=== PATIENT | female | born 1970 | race Asian ===

== ENCOUNTER 2021-01-11 11:57 | Emergency (ER) | payer OTHER, SELFPAY ==
[2021-01-11 12:33] VITALS: BP 108/73; PULSE 66; RESP 18; TEMP 36.4; O2SAT 98; BMI 23.9
--- NOTE | 2021-01-11 12:44 | CT_ITS ---
WS: [id number] CT HEAD NONCONTRAST HISTORY: fall, headache, fatigue TECHNIQUE: Contiguous axial imaging performed through the brain in 2.5 mm imaging. Bone and soft tiss ue windows. Sagittal and coronal reformats reviewed. All CT scans at [facility] use at le ast one of these dose optimization techniques: automated exposure control; mA and/or kV adjustment pe r patient size (includes targeted exams where dose is matched to clinical indication); or iterative r econstruction. DLP: 860.43 mGy.cm COMPARISON: None available. No acute intracranial hemorrhage, midline shift or mass effect. No significant white matter disease. No atrophy or prior infarcts or herniation. Ventricles: Normal size with no hydrocephalus. Paranasal sinuses: Almost complete opacification of the LEFT maxillary sinus. Probably from mucoperio steal thickening and sinus disease. Mastoid air cells: Well pneumatized. Calvarium and scalp: Skull is intact with no soft tissue edema or swelling. CT/CT head wo con* [id number] IMPRESSION: 1. No acute intracranial hemorrhage or edema. 2. No skull fracture. 3. LEFT maxillary sinusitis.
--- NOTE | 2021-01-11 12:45 | ED_ITS ---
HPI - Fall General: Chief Complaint: Fall Stated Complaint: FELL LAST NIGHT/HEAD INJURIES, CONFUSION Time Seen by Provider: 01/11/21 12:37 History of Present Illness: HPI Narrative: Patient states she fell last night striking her head and right shoulder when she had a rail coming off a sidewalk. States she had immediate headache. She denies any nausea or vomiting since then. She did chip her tooth and got abrasion to her upper lip. She did not remember where she hit her head at. Patient says she is felt just really fatigued and and sleepy today. MD complaint: fall Onset (ago): hour(s) Fall from: standing Fall witnessed: yes, by bystander Place fall occurred: street Loss of consciousness: None Prolonged down time: no Symptoms prior to fall: none Context: tripped/slipped Location of injury: head and other Location of injury - extremities: Right: shoulder Severity: mild Severity scale (1-10): 2 Quality: aching Associated symptoms-after fall: Reports no associated symptoms and headache(s); Denies abdominal pain, chest pain or neck pain Review of Systems Const: Reports: fatigue; Denies: fever(s), chills or body aches Eyes: Denies: change in vision or blurry vision ENMT: Denies: throat pain or nasal congestion Card: Denies: chest pain or dyspnea on exertion Resp: Denies: dyspnea, productive cough or non-productive cough GI: Denies: abdominal pain, nausea or vomiting Musc: Reports: joint pain; Denies: neck pain or extremity pain Skin/Breast: Denies: rash Neuro: Reports: headache(s) Psych: Denies: anxiety or depression Dale/Lymph: Denies: easy bruising Physical Exam Const: COMMON NORMALS: no acute distress, average body habitus and patient oriented x3 HENMT: COMMON NORMALS: normocephalic HEAD & SCALP: normal to inspection and normocephalic FACE & SINUS: normal facial exam TEETH & GINGIVA IMAGES: 1. Eye: COMMON NORMALS: Equal, round and reactive pupils present and conjunctivae normal GENERAL EYE: appearance normal, both eyes and all related structures CONJUNCTIVA: Yes conjunctivae normal PUPIL: Yes Equal, round and reactive pupils present Neck/C-Spine: COMMON NORMALS: no JVD Chest: COMMONS NORMALS: normal inspection of the chest Resp: COMMON NORMALS: normal respiratory effort and clear to auscultation bilaterally AUSCULTATION: clear to auscultation bilaterally Cardio: COMMON NORMALS: no JVD, regular rate and regular rhythm RATE: regular rate RHYTHM: regular rhythm GI: COMMON NORMALS: Normal to inspection, nondistended, normoactive bowel sounds present Extremity: COMMON NORMALS: full ROM RIGHT UPPER EXTREMITY: Yes shoulder joint (Tender to anterior aspect, has full range of motion, no swelling bruising) Neuro: COMMON NORMALS: patient oriented x3, CN's II-XII intact bilaterally, moves all extremities, no focal motor deficits and no sensory deficits noted Skin: OTHER: Abrasion above upper lip. Course Vital Signs: Vital signs: Vital Signs Temperature 97.9 F 01/11/21 13:30 Pulse Rate 69 01/11/21 13:30 Respiratory Rate 16 01/11/21 13:30 Blood Pressure 104/67 01/11/21 13:30 Pulse Oximetry 98 01/11/21 13:30 MDM - Fall MDM Narrative: Medical decision making narrative: CT negative for any head injury. Does show maxillary sinus which is located left maxillary sinus almost complete patient did state that she has been having some sinus problems over the last few weeks. Patient given head injury instructions as to complete antibiotic course for maxillary sinus and blood primary care provider. Discharge Plan Discharge Patient Disposition: Home Clinical Impression: Sinusitis, maxillary, chronic Fall Qualifiers: Encounter type: initial encounter Qualified Code(s): W19.XXXA - Unspecified fall, initial encounter Condition: Stable Prescriptions: New Bactrim DS 800-160 mg tablet 1 tab PO BID 21 Days Qty: 42 RF: 0 Discharge Orders: Discharge ED (Routine); Ordered 01/11/21 Ordered By: Vernon Kemp Referrals: Lulu Prather MD [Primary Care Provider] - Discharge Diet: Usual diet Discharge Activity: Resume usual activity Patient Instructions: Sinusitis (ED), Concussion (ED) Activity Restrictions/Additional Instructions: Follow-up with medical provider as directed. Take medications as prescribed. Return to the ER or your medical provider if condition worsens. Please read and understand discharge instructions. If any questions ask please. Coding Level of Care Code ED Consumer Insights Intern for Seema Fwd Exam Comprehensive
[2021-01-11 13:30] VITALS: BP 104/67; PULSE 69; RESP 16; TEMP 36.6; O2SAT 98
== END 2021-01-11 13:31 | disposition home or self-care (01) ==
PROVIDERS: Emergency Provider Nurse Practitioner Family; PCP Family Medicine
DX: J32.0 Chronic maxillary sinusitis (principal); W19.XXXA Unspecified fall, initial encounter
CPT/HCPCS: 70450; 99282

== ENCOUNTER 2021-02-08 01:56 | Emergency (ER) | payer OTHER, SELFPAY ==
[2021-02-08 02:10] VITALS: BP 134/86; PULSE 70; RESP 17; TEMP 36.9; O2SAT 98; BMI 24.7
--- NOTE | 2021-02-08 02:21 | ED_ITS ---
Documented by User: WSIAM Rajput 02/10/21 17:21 HPI - Abdominal Pain General: Chief Complaint: Abdominal Pain Stated Complaint: n/v/fatigue Time Seen by Provider: 02/08/21 02:14 History of Present Illness: HPI narrative: 50-year-old female comes in today with illness starting yesterday. Patient reports nausea vomiting and fever since yesterday. Patient has no chronic medical problems. Patient occasionally take Advil and ibuprofen. Patient has had a about 20 years ago. Patient appears mildly unwell but not toxic. Patient appears in mild to moderate pain. Associated Symptoms: Reports fever(s), nausea and vomiting Related Data: Date of Last Menstrual Period: 01/31/21 Review of Systems General: Reports: 10 or more systems reviewed and unremarkable except in HPI and below Const: Reports: fever(s) GI: Reports: nausea and vomiting REPLACED BY [facility] Female Reproductive History: Date of last menstrual period: 01/31/21 Physical Exam Const: COMMON NORMALS: no acute distress and patient oriented x3 GENERAL APPEARANCE: cooperative HENMT: COMMON NORMALS: normocephalic and Normal external nose present HEAD & SCALP: normal to inspection and normocephalic NOSE: Normal external nose present MOUTH: Normal oral and palatal mucosa present THROAT: posterior oropharynx normal Eye: GENERAL EYE: appearance normal, both eyes and all related structures Neck/C-Spine: COMMON NORMALS: full ROM Lymph: LYMPHATIC: no lymphadenopathy noted Chest: COMMONS NORMALS: normal inspection of the chest Resp: COMMON NORMALS: normal respiratory effort EFFORT & INSPECTION: Yes able to speak in complete sentences Cardio: COMMON NORMALS: regular rate and regular rhythm RATE: regular rate RHYTHM: regular rhythm GI: COMMON NORMALS: Soft to palpation PALPATION: Yes Soft to palpation, Yes Tenderness to palpation present (GI) Details: RLQ and Yes Guarding due to palpation present (GI) : BLADDER/KIDNEY EXAM: Yes CVA tenderness on the left Back/Pelvis: COMMON NORMALS: thoracic and lumbar spine normal to inspection GENERAL BACK: Yes CVA tenderness Extremity: COMMON NORMALS: normal to inspection Neuro: COMMON NORMALS: patient oriented x3 and moves all extremities Psych: COMMON NORMALS: mental status grossly normal and cooperative Skin: COMMON NORMALS: no rashes or lesions noted GENERAL SKIN EXAM: no rashes or lesions noted Course ED course: 299, reviewed patient with Dr. Landeros who assumed care of patient on my end of shift. Vital Signs: Vital signs: Vital Signs Temperature 98.4 F 02/08/21 02:10 Pulse Rate 71 02/08/21 05:45 Respiratory Rate 16 02/08/21 05:45 Blood Pressure 106/78 02/08/21 05:45 Pulse Oximetry 99 02/08/21 05:45 MDM - Abdominal Pain Lab Data: Labs: Lab Results 02/08/21 02/08/21 02/08/21 Range/Units 02:40 02:40 02:40 WBC 5.8 (4.0-10.0) 10^3/ uL RBC 4.34 (4.1-5.3) 10^6/u L Hgb 12.9 (11.5-15.3) g/dL Hct 37.9 (37.0-47.0) % MCV 87.3 (81-99) fL MCH 29.7 (28.0-34.0) pg MCHC 34.0 (30.0-36.0) g/dL RDW 12.6 (12.1-15.1) % Plt Count 213 (130-400) 10^3/c mm MPV 10.2 (7.4-10.4) fL Neut % (Auto) 33.4 % Lymph % (Auto) 49.8 % Miner % (Auto) 5.9 % Eos % (Auto) 9.7 % Baso % (Auto) 1.0 % Neut # (Auto) 1.92 (1.8-7.7) 10^3/u L Lymph # (Auto) 2.9 (0.8-4.8) 10^3/u L Miner # (Auto) 0.3 (0.2-0.9) 10^3/u L Eos # (Auto) 0.6 (0.0-0.8) 10^3/u L Baso # (Auto) 0.1 (0.0-0.1) 10^3/u L Nucleated RBC % (a uto) 0 % Nucleated RBCs # 0.0 /100WBC Sodium 134 L (136-145) mmol/L Potassium 3.1 L (3.5-5.1) mmol/L Chloride 99 (98-107) mmol/L Carbon Dioxide 26 (22-29) mmol/L Anion Gap 12.1 (5-19) BUN 6 (6-20) mg/dL Creatinine 0.4 L (0.5-0.9) mg/dL GFR Calculation 169.0 H (90-130) mL/min Glucose 98 (65-115) mg/dL Calculated Osmolal ity 276 L (285-295) mOsm/k g Lactic Acid (0.5-2.2) mmol/L Calcium 8.5 (8.5-10.5) mg/dL Total Bilirubin 1.4 H (0.15-1.2) mg/dL AST 152 H (0-32) U/L ALT 327 H (0-33) U/L Alkaline Phosphata se 294 H (35-105) IU/L C-Reactive Protein 14.3 H (0.0-4.9) mg/L Total Protein 7.1 (6.6-8.7) g/dL Albumin 3.6 (3.5-5.2) g/dL Globulin 3.5 (1.3-4.6) g/dL Lipase 19 (13-60) U/L Urine Color (Yellow) Urine Appearance (CLEAR) Urine pH (5-7) Ur Specific Gravit y (1.005-1.030) Urine Protein (Negative) Urine Glucose (UA) (Normal) Urine Ketones (Negative) Urine Blood (Negative) Urine Nitrate (Negative) Urine Bilirubin (Negative) Urine Urobilinogen (Negative) mg/dL Ur Leukocyte Tiki ase (Negative) Urine RBC (0-2) /hpf Urine WBC (0-5) /hpf Ur Squamous Epith Cells (0-5) /hpf Amorphous Sediment Urine Bacteria (NONE) /hpf SARS-CoV-2 Ag (Rap id) Negative (Negative) 02/08/21 02/08/21 Range/Units 03:02 03:10 WBC (4.0-10.0) 10^3/ uL RBC (4.1-5.3) 10^6/u L Hgb (11.5-15.3) g/dL Hct (37.0-47.0) % MCV (81-99) fL MCH (28.0-34.0) pg MCHC (30.0-36.0) g/dL RDW (12.1-15.1) % Plt Count (130-400) 10^3/c mm MPV (7.4-10.4) fL Neut % (Auto) % Lymph % (Auto) % Miner % (Auto) % Eos % (Auto) % Baso % (Auto) % Neut # (Auto) (1.8-7.7) 10^3/u L Lymph # (Auto) (0.8-4.8) 10^3/u L Miner # (Auto) (0.2-0.9) 10^3/u L Eos # (Auto) (0.0-0.8) 10^3/u L Baso # (Auto) (0.0-0.1) 10^3/u L Nucleated RBC % (a uto) % Nucleated RBCs # /100WBC Sodium (136-145) mmol/L Potassium (3.5-5.1) mmol/L Chloride (98-107) mmol/L Carbon Dioxide (22-29) mmol/L Anion Gap (5-19) BUN (6-20) mg/dL Creatinine (0.5-0.9) mg/dL GFR Calculation (90-130) mL/min Glucose (65-115) mg/dL Calculated Osmolal ity (285-295) mOsm/k g Lactic Acid 1.3 (0.5-2.2) mmol/L Calcium (8.5-10.5) mg/dL Total Bilirubin (0.15-1.2) mg/dL AST (0-32) U/L ALT (0-33) U/L Alkaline Phosphata se (35-105) IU/L C-Reactive Protein (0.0-4.9) mg/L Total Protein (6.6-8.7) g/dL Albumin (3.5-5.2) g/dL Globulin (1.3-4.6) g/dL Lipase (13-60) U/L Urine Color Angelita (Yellow) Urine Appearance Sl hazy (CLEAR) Urine pH 5 (5-7) Ur Specific Gravit y 1.015 (1.005-1.030) Urine Protein Neg (Negative) Urine Glucose (UA) Norm (Normal) Urine Ketones 1+ H (Negative) Urine Blood 2+ H (Negative) Urine Nitrate Negative (Negative) Urine Bilirubin 2+ H (Negative) Urine Urobilinogen 4 H (Negative) mg/dL Ur Leukocyte Tiki ase Trace H (Negative) Urine RBC 5-10 H (0-2) /hpf Urine WBC 0-4 H (0-5) /hpf Ur Squamous Epith Cells 10-15 H (0-5) /hpf Amorphous Sediment Not Reportable Urine Bacteria 2+ H (NONE) /hpf SARS-CoV-2 Ag (Rap id) (Negative) Discharge Plan Discharge Patient Disposition: Home Clinical Impression: Cholecystitis Abdominal pain Qualifiers: Abdominal location: generalized Qualified Code(s): R10.84 - Generalized abdominal pain Condition: Stable Prescriptions: New hydrocodone-acetaminophen 5-325 mg tablet 1 tab PO Q6H PRN (Reason: pain) Qty: 14 RF: 0 ondansetron 4 mg tablet,disintegrating 4 mg PO Q6H PRN (Reason: nausea and vomiting) Qty: 14 RF: 0 levofloxacin 750 mg tablet 750 mg PO DAILY 5 Days RF: 0 Discharge Orders: Discharge ED (Routine); Ordered 02/08/21 Ordered By: Sheila Landeros Ref[facility] [[facility] Provider[facility] Discharge Diet: Advance as tolerated Discharge Activity: Resume usual activity Patient Instructions: Abdominal Pain (ED), Opioid Safety Coding Level of Care Code ED Construction Crew Member for Chg Fwd Exam Comprehensive Documented by User: Sheila Landeros MD 02/08/21 05:37 HPI - Abdominal Pain General: Chief Complaint: Abdominal Pain Stated Complaint: n/v/fatigue Time Seen by Provider: 02/08/21 02:14 Course Vital Signs: Vital signs: Vital Signs Temperature 98.4 F 02/08/21 02:10 Pulse Rate 71 02/08/21 05:45 Respiratory Rate 16 02/08/21 05:45 Blood Pressure 106/78 02/08/21 05:45 Pulse Oximetry 99 02/08/21 05:45 MDM - Abdominal Pain MDM Narrative: Medical decision making narrative: Patient presents here with abdominal pain. CT and ultrasound showed likely cholecystitis. She has no signs of sepsis no fever white count here is normal. She has minimal tenderness in her right upper quadrant. I offered her admission versus outpatient follow- up with surgery she would like to try the outpatient route first. I spoke to Dr. Ruiz who agrees with this plan. She has no signs of severe cholecystitis and her common bile duct was normal with no signs of a Dena no cholelithiasis. We will start her on antibiotics and pain meds. She is to follow-up with Dr. Wilson in 1 to 2 days and return to ER if worsening. She understands agrees to plan. Lab Data: Labs: Lab Results 02/08/21 02/08/21 02/08/21 Range/Units 02:40 02:40 02:40 WBC 5.8 (4.0-10.0) 10^3/ uL RBC 4.34 (4.1-5.3) 10^6/u L Hgb 12.9 (11.5-15.3) g/dL Hct 37.9 (37.0-47.0) % MCV 87.3 (81-99) fL MCH 29.7 (28.0-34.0) pg MCHC 34.0 (30.0-36.0) g/dL RDW 12.6 (12.1-15.1) % Plt Count 213 (130-400) 10^3/c mm MPV 10.2 (7.4-10.4) fL Neut % (Auto) 33.4 % Lymph % (Auto) 49.8 % Miner % (Auto) 5.9 % Eos % (Auto) 9.7 % Baso % (Auto) 1.0 % Neut # (Auto) 1.92 (1.8-7.7) 10^3/u L Lymph # (Auto) 2.9 (0.8-4.8) 10^3/u L Miner # (Auto) 0.3 (0.2-0.9) 10^3/u L Eos # (Auto) 0.6 (0.0-0.8) 10^3/u L Baso # (Auto) 0.1 (0.0-0.1) 10^3/u L Nucleated RBC % (a uto) 0 % Nucleated RBCs # 0.0 /100WBC Sodium 134 L (136-145) mmol/L Potassium 3.1 L (3.5-5.1) mmol/L Chloride 99 (98-107) mmol/L Carbon Dioxide 26 (22-29) mmol/L Anion Gap 12.1 (5-19) BUN 6 (6-20) mg/dL Creatinine 0.4 L (0.5-0.9) mg/dL GFR Calculation 169.0 H (90-130) mL/min Glucose 98 (65-115) mg/dL Calculated Osmolal ity 276 L (285-295) mOsm/k g Lactic Acid (0.5-2.2) mmol/L Calcium 8.5 (8.5-10.5) mg/dL Total Bilirubin 1.4 H (0.15-1.2) mg/dL AST 152 H (0-32) U/L ALT 327 H (0-33) U/L Alkaline Phosphata se 294 H (35-105) IU/L C-Reactive Protein 14.3 H (0.0-4.9) mg/L Total Protein 7.1 (6.6-8.7) g/dL Albumin 3.6 (3.5-5.2) g/dL Globulin 3.5 (1.3-4.6) g/dL Lipase 19 (13-60) U/L Urine Color (Yellow) Urine Appearance (CLEAR) Urine pH (5-7) Ur Specific Gravit y (1.005-1.030) Urine Protein (Negative) Urine Glucose (UA) (Normal) Urine Ketones (Negative) Urine Blood (Negative) Urine Nitrate (Negative) Urine Bilirubin (Negative) Urine Urobilinogen (Negative) mg/dL Ur Leukocyte Tiki ase (Negative) Urine RBC (0-2) /hpf Urine WBC (0-5) /hpf Ur Squamous Epith Cells (0-5) /hpf Amorphous Sediment Urine Bacteria (NONE) /hpf SARS-CoV-2 Ag (Rap id) Negative (Negative) 02/08/21 02/08/21 Range/Units 03:02 03:10 WBC (4.0-10.0) 10^3/ uL RBC (4.1-5.3) 10^6/u L Hgb (11.5-15.3) g/dL Hct (37.0-47.0) % MCV (81-99) fL MCH (28.0-34.0) pg MCHC (30.0-36.0) g/dL RDW (12.1-15.1) % Plt Count (130-400) 10^3/c mm MPV (7.4-10.4) fL Neut % (Auto) % Lymph % (Auto) % Miner % (Auto) % Eos % (Auto) % Baso % (Auto) % Neut # (Auto) (1.8-7.7) 10^3/u L Lymph # (Auto) (0.8-4.8) 10^3/u L Miner # (Auto) (0.2-0.9) 10^3/u L Eos # (Auto) (0.0-0.8) 10^3/u L Baso # (Auto) (0.0-0.1) 10^3/u L Nucleated RBC % (a uto) % Nucleated RBCs # /100WBC Sodium (136-145) mmol/L Potassium (3.5-5.1) mmol/L Chloride (98-107) mmol/L Carbon Dioxide (22-29) mmol/L Anion Gap (5-19) BUN (6-20) mg/dL Creatinine (0.5-0.9) mg/dL GFR Calculation (90-130) mL/min Glucose (65-115) mg/dL Calculated Osmolal ity (285-295) mOsm/k g Lactic Acid 1.3 (0.5-2.2) mmol/L Calcium (8.5-10.5) mg/dL Total Bilirubin (0.15-1.2) mg/dL AST (0-32) U/L ALT (0-33) U/L Alkaline Phosphata se (35-105) IU/L C-Reactive Protein (0.0-4.9) mg/L Total Protein (6.6-8.7) g/dL Albumin (3.5-5.2) g/dL Globulin (1.3-4.6) g/dL Lipase (13-60) U/L Urine Color Angelita (Yellow) Urine Appearance Sl hazy (CLEAR) Urine pH 5 (5-7) Ur Specific Gravit y 1.015 (1.005-1.030) Urine Protein Neg (Negative) Urine Glucose (UA) Norm (Normal) Urine Ketones 1+ H (Negative) Urine Blood 2+ H (Negative) Urine Nitrate Negative (Negative) Urine Bilirubin 2+ H (Negative) Urine Urobilinogen 4 H (Negative) mg/dL Ur Leukocyte Tiki ase Trace H (Negative) Urine RBC 5-10 H (0-2) /hpf Urine WBC 0-4 H (0-5) /hpf Ur Squamous Epith Cells 10-15 H (0-5) /hpf Amorphous Sediment Not Reportable Urine Bacteria 2+ H (NONE) /hpf SARS-CoV-2 Ag (Rap id) (Negative) Imaging Data ^: CT Abd/Pel: Attestation: I personally reviewed and interpreted this imaging study as follows: Radiologist's impression: [facility] [id number] [address] Scan Report Signed Patient: Kaylie Sterling Unit #: [id number] : 1970 Age/Sex: 50 / F ADM Date: 02/08/21 Loc: ER Room/Bed: Attending Dr: Ordering Provider/Ordering MD: Yefri Dominguez NP Date of Service: 02/08/21 Procedure(s): CT abdomen pelvis w con* [id number] Accession Number(s): [id number] Report Number: [id number] PROCEDURE INFORMATION: Exam: CT Abdomen And Pelvis With Contrast Exam date and time: 02/08/2021 2:23 AM Age: 50 years old Clinical indication: Abdominal pain; Localized; Right lower quadrant (rlq); Additional info: Rlq pain TECHNIQUE: Imaging protocol: Computed tomography of the abdomen and pelvis with contrast. Radiation optimization: All CT scans at this facility use at least one of these dose optimization techniques: automated exposure control; mA and/or kV adjustment per patient size (includes targeted exams where dose is matched to clinical indication); or iterative reconstruction. Contrast material: OMNI 300; Contrast volume: 95 ml; Contrast route: INTRAVENOUS (IV); COMPARISON: No relevant prior studies available. RADIATION DOSE METRICS: Total DLP (mGy-cm): 936.16 FINDINGS: Liver: There are cysts in the liver, measuring up to 10.0 mm. Gallbladder and bile ducts: Gallbladder wall thickening and mucosal enhancement suspicious for cholecystitis. Pancreas: Normal. No ductal dilation. Spleen: Normal. No splenomegaly. Adrenal glands: Normal. No mass. Kidneys and ureters: There is a 9 mm cyst or angiomyolipoma in the left kidney. The right kidney is normal. No ureteral stones or obstructive uropathy. Stomach and bowel: Unremarkable. No obstruction. No mucosal thickening. Appendix: The appendix is normal. Intraperitoneal space: Unremarkable. No free air. No significant fluid collection. Vasculature: Unremarkable. No abdominal aortic aneurysm. Lymph nodes: Unremarkable. No enlarged lymph nodes. Urinary bladder: There is diffuse bladder wall thickening with surrounding inflammatory stranding consistent with cystitis. Reproductive: Unremarkable as visualized. Bones/joints: Unremarkable. No acute fracture. Soft tissues: Unremarkable. CT/CT abdomen pelvis w con* [id number] IMPRESSION: Cystitis. Correlate clinically. Probable cholecystitis. Hepatic cysts or hemangiomas. Left renal cyst or angiomyolipoma. COMMENTS: Consistent with the [employer]'s Incidental Findings Committee white paper (J Am Leydi Radiol 2018): Any incidental renal lesion less than 1 cm or classified as too small to characterize, or any incidental cystic renal lesion characterized as simple-appearing, is likely benign. No follow-up imaging is recommended for these lesions per consensus recommendations based on imaging criteria. Radiation Dose CTDIVOL = (mGy): DLP = 936.16 (mGy-cm) Dictated By: Camilo Orellana MD Signed By: Camilo Orellana MD Signed Date/Time: 02/08/21430 DD/ 9 Discharge Plan Discharge Patient Disposition: Home Clinical Impression: Cholecystitis Abdominal pain Qualifiers: Abdominal location: generalized Qualified Code(s): R10.84 - Generalized abdominal pain Condition: Stable Prescriptions: New hydrocodone-acetaminophen 5-325 mg tablet 1 tab PO Q6H PRN (Reason: pain) Qty: 14 RF: 0 ondansetron 4 mg tablet,disintegrating 4 mg PO Q6H PRN (Reason: nausea and vomiting) Qty: 14 RF: 0 levofloxacin 750 mg tablet 750 mg PO DAILY 5 Days RF: 0 Discharge Orders: Discharge ED (Routine); Ordered 02/08/21 Ordered By: Sheila Landeros Referrals: Lulu Prather MD [Primary Care Provider] - Joseph,Ken Rosen MD [Physician] - 1-3 days Discharge Diet: Advance as tolerated Discharge Activity: Resume usual activity Patient Instructions: Abdominal Pain (ED), Opioid Safety Coding Level of Care Code ED Construction Crew Member for Chg Fwd Exam Comprehensive
[2021-02-08] MEDS: ondansetron 2 mg/ML SDV 2 mL 4 MG IVP (02:30)
[2021-02-08] MEDS: sodium chloride 0.9% 1,000 ML 999 ML IV (02:30)
[2021-02-08 02:47] LABS: Basophils # 0.1 10^3/uL (0.0-0.1); Eosinophils # 0.6 10^3/uL (0.0-0.8); Eosinophils % 9.7 %; Hematocrit 37.9 % (37.0-47.0); Hemoglobin 12.9 g/dL (11.5-15.3); Lymphocytes # 2.9 10^3/uL (0.8-4.8); Lymphocytes % 49.8 %; Mean Corpuscular Hemoglobin 29.7 pg (28.0-34.0); Mean Corpuscular Volume 87.3 fL (81-99); Mean Platelet Volume 10.2 fL (7.4-10.4); Monocytes # 0.3 10^3/uL (0.2-0.9); Monocytes % 5.9 %; Neutrophils # 1.92 10^3/uL (1.8-7.7); Neutrophils % 33.4 %; Nucleated Red Blood Cells % 0 %; Platelet Count 213 10^3/cmm (130-400); Red Blood Count 4.34 10^6/uL (4.1-5.3); Red Cell Distribution Width 12.6 % (12.1-15.1); White Blood Count 5.8 10^3/uL (4.0-10.0)
[2021-02-08 03:06] VITALS: BP 119/68; PULSE 71; RESP 16; O2SAT 96
[2021-02-08 03:08] LABS: Alanine Aminotransferase 327 U/L (0-33); Albumin Level 3.6 g/dL (3.5-5.2); Alkaline Phosphatase 294 IU/L (35-105); Anion Gap 12.1 (5-19); Aspartate Amino Transferase 152 U/L (0-32); Blood Urea Nitrogen 6 mg/dL (6-20); C Reactive Protein 14.3 mg/L (0.0-4.9); Calcium 8.5 mg/dL (8.5-10.5); Carbon Dioxide 26 mmol/L (22-29); Chloride 99 mmol/L (98-107); Globulin 3.5 g/dL (1.3-4.6); Glucose 98 mg/dL (65-115); Lipase 19 U/L (13-60); Osmolality Calculated 276 mOsm/kg (285-295); Potassium 3.1 mmol/L (3.5-5.1); Sodium 134 mmol/L (136-145); Total Bilirubin 1.4 mg/dL (0.15-1.2); Total Protein 7.1 g/dL (6.6-8.7)
[2021-02-08 03:09] LABS: Slide Review Slide Review Perform
[2021-02-08 03:10] LABS: Creatinine Clr Calc Pharmacy 150.9844
[2021-02-08 03:23] LABS: Glucose Urine UA Norm (Normal); Protein Urine Neg (Negative); Specific Gravity, Urine 1.015 (1.005-1.030); Urine Appearance SL Hazy (CLEAR); Urine Color Amber (Yellow); pH Urine 5 (5-7)
[2021-02-08 03:24] LABS: Add Urine Culture? No; Add Urine Microscopic? YES; Bacteria Urine 2+ /hpf; Bilirubin Urine 2+ (Negative); Blood Urine 2+ (Negative); Ketones Urine 1+ (Negative); Leukocyte Esterase Urine Trace (Negative); Nitrate Urine Negative (Negative); Urobilinogen Urine 4 mg/dL (Negative); WBC Urine 0-4 /hpf (0-5)
[2021-02-08] MEDS: iohexol 300 mg/mL 100 mL Btl IV (03:24)
[2021-02-08 03:37] LABS: Lactic Sepsis W/Reflex 1.3 mmol/L (0.5-2.2)
[2021-02-08 03:40] LABS: SARS Covid-2 Antigen Negative (Negative)
--- NOTE | 2021-02-08 04:39 | US_ITS ---
WS: [id number] RIGHT UPPER QUADRANT ULTRASOUND HISTORY: abd pain COMPARISON: CT 02/08/2021 Liver: 11.3 cm in length. Normal size liver. No bile duct dilatation or mass. Gallbladder: Mildly contracted gallbladder with diffuse wall thickening and increased echogenicity. N o stones are identified. No pericholecystic fluid. Gallbladder wall measures 1.3 cm. CBD: 0.3 cm Pancreas: Normal size and echogenicity. Right kidney: 10.1 cm in length. Normal size and echogenicity. No hydronephrosis or mass. Aorta and IVC: Unremarkable abdominal aorta and IVC. No ascites. US/US gall bladder [id number] IMPRESSION: 1. Diffusely thickened edematous gallbladder wall with no stones identified.. 2. No bile duct dilatation. 3. Contracted gallbladder.
[2021-02-08 05:17] VITALS: BP 109/61; PULSE 69; RESP 16; O2SAT 98
[2021-02-08] MEDS: levoFLOXacin 750 mg Tablet PO (05:36)
[2021-02-08 05:45] VITALS: BP 106/78; PULSE 71; RESP 16; O2SAT 99
--- NOTE | 2021-02-08 11:03 | DCPLANNER ---
Addendum entered by Candelaria Neely 02/16/21 13:35: Patient followed up with [facility] General Surgery. Original Note: stock room manager had message to schedule a follow up appointment for patient with Dr. Ruiz. stock room manager faxed patients information to the office of Dr. Ruiz. Patients information will be reviewed, and clinic will call patient with appointment information.
== END 2021-02-08 05:47 | disposition home or self-care (01) ==
PROVIDERS: Nurse Practitioner Family; Emergency Provider Emergency Medicine; PCP Family Medicine
DX: K81.9 Cholecystitis, unspecified (principal); R10.84 Generalized abdominal pain; Z20.822 Contact with and (suspected) exposure to COVID-19
CPT/HCPCS: 74177; 76705; 80053; 81001; 83605; 83690; 85025; 86140; 87426; 96361; 96374; 99284; J2405; J7030; Q9967

== ENCOUNTER 2021-02-12 21:45 | Emergency (ER) | payer OTHER, SELFPAY ==
[2021-02-12 21:51] VITALS: BP 131/82; PULSE 82; RESP 18; TEMP 37; O2SAT 98; BMI 24.7
[2021-02-12 22:06] VITALS: BP 123/78; PULSE 76; RESP 18; O2SAT 97
--- NOTE | 2021-02-12 22:09 | W.ED.ABDPA2 ---
HPI - Abdominal Pain General: Chief Complaint: Abdominal Pain Stated Complaint: abd pain/vomiting Time Seen by Provider: 02/12/21 22:08 History of Present Illness: HPI narrative: 50-year-old female comes in today with complaints of a headache with nausea and vomiting. Patient was diagnosed with cholecystitis on the third and reports improvement in abdominal pain but today started having a headache with nausea and vomiting. Patient reports that her abdomen does not hurt like it did. Patient appears mildly unwell but not toxic. Patient is alert and oriented. Associated Symptoms: Reports nausea and vomiting Related Data: Date of Last Menstrual Period: 01/31/21 Review of Systems General: Reports: 10 or more systems reviewed and unremarkable except in HPI and below GI: Reports: nausea and vomiting Neuro: Reports: headache(s) FOR[facility]LY [facility], [facility] ED Female Reproductive History: Date of last menstrual period: 01/31/21 Physical Exam Const: COMMON NORMALS: no acute distress and patient oriented x3 GENERAL APPEARANCE: cooperative HENMT: COMMON NORMALS: normocephalic, TM's normal bilaterally and Normal external nose present HEAD & SCALP: normal to inspection and normocephalic NOSE: Normal external nose present TYMPANIC MEMBRANE: TM's normal bilaterally MOUTH: Normal oral and palatal mucosa present THROAT: posterior oropharynx normal Eye: GENERAL EYE: appearance normal, both eyes and all related structures Neck/C-Spine: COMMON NORMALS: full ROM Lymph: LYMPHATIC: no lymphadenopathy noted Chest: COMMONS NORMALS: normal inspection of the chest Resp: COMMON NORMALS: normal respiratory effort EFFORT & INSPECTION: Yes able to speak in complete sentences Cardio: COMMON NORMALS: regular rate and regular rhythm RATE: regular rate RHYTHM: regular rhythm GI: COMMON NORMALS: Soft to palpation AUSCULTATION: Yes normoactive bowel sounds PALPATION: Yes Soft to palpation and Yes Tenderness to palpation present (GI) Details: RUQ : COMMON NORMALS: Yes no CVA tenderness BLADDER/KIDNEY EXAM: Yes no CVA tenderness Back/Pelvis: COMMON NORMALS: no CVA tenderness and thoracic and lumbar spine normal to inspection Extremity: COMMON NORMALS: normal to inspection Neuro: COMMON NORMALS: patient oriented x3 and moves all extremities Psych: COMMON NORMALS: mental status grossly normal and cooperative Skin: COMMON NORMALS: no rashes or lesions noted GENERAL SKIN EXAM: no rashes or lesions noted Course ED course: 1207, reviewed patient's headache which is much improved. Patient reports being tired. Discussed with patient the her labs that look to be improved regarding her cholecystitis. I believe patient probably had a rebound headache due to the use of the hydrocodone in which the Reglan and Benadryl has aborted. We will give her 1 dose of Toradol and 1 dose of dexamethasone to prevent recurrence of headache. I discussed patient's cholecystitis that at this time it appears that he has improved I recommended she continue her meds as directed but avoiding the hydrocodone unless really needed for her pain. Patient reported understanding and agreed to plan. Vital Signs: Vital signs: Vital Signs Temperature 98.6 F 02/12/21 21:51 Pulse Rate 89 02/12/21 23:14 Respiratory Rate 16 02/12/21 23:14 Blood Pressure 135/88 02/12/21 23:14 Pulse Oximetry 98 02/12/21 23:14 MDM - Abdominal Pain MDM Narrative: Medical decision making narrative: Patient comes in with migraine headache. Patient was diagnosed with cholecystitis 4 days ago. Patient reports has been feeling better with her stomach pain but starting today she started having a bad headache with nausea and vomiting. On exam abdomen was soft with some mild tenderness in the right upper quadrant, skin was warm and dry, vital signs were normal. Differential diagnosis includes but not limited to worsening cholecystitis, sepsis, migraine headache, rebound headache. Patient was treated for a headache with Reglan and Benadryl with good results. Feel the patient probably has a rebound headache we treated it appropriately. We will give patient 1 dose of dexamethasone 4 mg IV and 15 mg of Toradol. Patient was encouraged to hold the hydrocodone unless she has significant pain. Patient can use Tylenol or ibuprofen otherwise for pain. Patient was recommended to follow-up with surgeon as scheduled. Patient was agreeable to this plan. Lab Data: Labs: Lab Results 02/12/21 02/12/21 02/12/21 Range/Units 22:31 22:31 22:31 WBC 9.1 (4.0-10.0) 10^3/ uL RBC 3.84 L (4.1-5.3) 10^6/u L Hgb 11.4 L (11.5-15.3) g/dL Hct 34.7 L (37.0-47.0) % MCV 90.4 (81-99) fL MCH 29.7 (28.0-34.0) pg MCHC 32.9 (30.0-36.0) g/dL RDW 13.1 (12.1-15.1) % Plt Count 280 (130-400) 10^3/c mm MPV 9.9 (7.4-10.4) fL Neut % (Auto) 58.8 % Lymph % (Auto) 30.5 % Liberty % (Auto) 7.1 % Eos % (Auto) 2.5 % Baso % (Auto) 0.7 % Neut # (Auto) 5.37 (1.8-7.7) 10^3/u L Lymph # (Auto) 2.8 (0.8-4.8) 10^3/u L Liberty # (Auto) 0.7 (0.2-0.9) 10^3/u L Eos # (Auto) 0.2 (0.0-0.8) 10^3/u L Baso # (Auto) 0.1 (0.0-0.1) 10^3/u L Nucleated RBC % (a uto) 0 % Nucleated RBCs # 0.0 /100WBC Sodium 137 (136-145) mmol/L Potassium 3.3 L (3.5-5.1) mmol/L Chloride 102 (98-107) mmol/L Carbon Dioxide 26 (22-29) mmol/L Anion Gap 12.3 (5-19) BUN 6 (6-20) mg/dL Creatinine 0.4 L (0.5-0.9) mg/dL GFR Calculation 169.0 H (90-130) mL/min Glucose 103 (65-115) mg/dL Calculated Osmolal ity 282 L (285-295) mOsm/k g Lactic Acid 1.4 (0.5-2.2) mmol/L Calcium 8.3 L (8.5-10.5) mg/dL Total Bilirubin 0.5 (0.15-1.2) mg/dL AST 25 (0-32) U/L ALT 102 H (0-33) U/L Alkaline Phosphata se 161 H (35-105) IU/L Total Protein 6.3 L (6.6-8.7) g/dL Albumin 3.6 (3.5-5.2) g/dL Globulin 2.7 (1.3-4.6) g/dL Lipase 22 (13-60) U/L Discharge Plan Discharge Patient Disposition: Home Clinical Impression: Analgesic rebound headache Condition: Stable Prescriptions: No Action hydrocodone-acetaminophen 5-325 mg tablet 1 tab PO Q6H PRN (Reason: pain) Qty: 14 RF: 0 ondansetron 4 mg tablet,disintegrating 4 mg PO Q6H PRN (Reason: nausea and vomiting) Qty: 14 RF: 0 levofloxacin 750 mg tablet 750 mg PO DAILY 5 Days RF: 0 Discharge Orders: Discharge ED (Routine); Ordered 02/13/21 Ordered By: Yefri Dominguez Referrals: Lulu Prather MD [Primary Care Provider] - Discharge Diet: Advance as tolerated Discharge Activity: Increase activity as tolerated Patient Instructions: Migraine Headache (ED), Opioid Safety Activity Restrictions/Additional Instructions: Home and rest. Drink plenty of water and fluids. Increase diet to a bland diet avoiding really greasy or spicy foods. Foods with bananas, rice, apples, toast, and boiled chicken may be tolerable. Avoid the use of the hydrocodone unless you are having severe abdominal pain as this may cause rebound migraine headaches. Use a dancer Eli as needed for nausea. Follow-up with surgeon as scheduled appointment regarding your cholecystitis. Return to the emergency department for new concerns or worsening symptoms such as persistent vomiting and high fever. Coding Level of Care Code ED Stress Analyst for [employer] Fwd Exam Comprehensive
[2021-02-12 22:53] LABS: Basophils # 0.1 10^3/uL (0.0-0.1); Basophils % 0.7 %; Eosinophils # 0.2 10^3/uL (0.0-0.8); Eosinophils % 2.5 %; Hematocrit 34.7 % (37.0-47.0); Hemoglobin 11.4 g/dL (11.5-15.3); Lymphocytes # 2.8 10^3/uL (0.8-4.8); Lymphocytes % 30.5 %; Mean Corpuscular HGB Conc 32.9 g/dL (30.0-36.0); Mean Corpuscular Hemoglobin 29.7 pg (28.0-34.0); Mean Corpuscular Volume 90.4 fL (81-99); Mean Platelet Volume 9.9 fL (7.4-10.4); Monocytes # 0.7 10^3/uL (0.2-0.9); Monocytes % 7.1 %; Neutrophils # 5.37 10^3/uL (1.8-7.7); Neutrophils % 58.8 %; Nucleated Red Blood Cells % 0 %; Platelet Count 280 10^3/cmm (130-400); Red Blood Count 3.84 10^6/uL (4.1-5.3); Red Cell Distribution Width 13.1 % (12.1-15.1); White Blood Count 9.1 10^3/uL (4.0-10.0)
[2021-02-12 23:09] LABS: Lactic Sepsis W/Reflex 1.4 mmol/L (0.5-2.2)
[2021-02-12 23:10] LABS: Alanine Aminotransferase 102 U/L (0-33); Albumin Level 3.6 g/dL (3.5-5.2); Alkaline Phosphatase 161 IU/L (35-105); Anion Gap 12.3 (5-19); Aspartate Amino Transferase 25 U/L (0-32); Blood Urea Nitrogen 6 mg/dL (6-20); Calcium 8.3 mg/dL (8.5-10.5); Carbon Dioxide 26 mmol/L (22-29); Chloride 102 mmol/L (98-107); Creatinine Clr Calc Pharmacy 150.9844; Globulin 2.7 g/dL (1.3-4.6); Glucose 103 mg/dL (65-115); Lipase 22 U/L (13-60); Osmolality Calculated 282 mOsm/kg (285-295); Potassium 3.3 mmol/L (3.5-5.1); Sodium 137 mmol/L (136-145); Total Bilirubin 0.5 mg/dL (0.15-1.2); Total Protein 6.3 g/dL (6.6-8.7)
[2021-02-12 23:14] VITALS: BP 135/88; PULSE 89; RESP 16; O2SAT 98
[2021-02-12] MEDS: sodium chloride 0.9% 1,000 ML 999 ML IV (23:18)
[2021-02-12] MEDS: metoclopramide 5 mg/mL SDV 2 mL 10 MG IVP (23:18)
[2021-02-12] MEDS: diphenhydrAMINE 50 mg/mL SDV 1mL 12.5 MG IVP (23:22)
[2021-02-13] MEDS: ketorolac 30 mg/mL INJ 15 MG IVP (00:46)
[2021-02-13] MEDS: dexamethasone 4 mg/mL INJ IVP (00:47)
[2021-02-13 01:45] VITALS: BP 114/71; PULSE 62; RESP 16; O2SAT 97
[2021-02-13 02:01] VITALS: BP 114/71; PULSE 62; RESP 16; TEMP 37; O2SAT 97
== END 2021-02-13 01:40 | disposition home or self-care (01) ==
PROVIDERS: Emergency Provider Nurse Practitioner Family; PCP Family Medicine
DX: G44.40 Drug-induced headache, not elsewhere classified, not intractable (principal); T39.95XA Adverse effect of unspecified nonopioid analgesic, antipyretic and antirheumatic, initial encounter
CPT/HCPCS: 80053; 83605; 83690; 85025; 96361; 96374; 96375; 99284; J1100; J1200; J1885; J2765; J7030

== ENCOUNTER → 2021-02-14 15:45 | Outpatient (BNVA) | payer OTHER, SELFPAY | PROVIDERS: PCP Family Medicine; Referring Provider Family Medicine; Visit Provider Surgery | DX: Z20.822 Contact with and (suspected) exposure to COVID-19 (principal); Z11.52 Encounter for screening for COVID-19 | CPT/HCPCS: 87635 ==

== ENCOUNTER 2021-02-17 11:27 | Day surgery (SDC) | payer OTHER, SELFPAY ==
[2021-02-15 15:38] VITALS: BMI 24.7
[2021-02-17] VITALS (11 sets, daily range): BP systolic 111–138; BP diastolic 74–94; PULSE 67–94; RESP 14–20; TEMP 36.4–37; O2SAT 95–100
[2021-02-17] MEDS: sodium chloride 0.9% 1,000 ML 30 ML IV (11:52)
[2021-02-17 12:05] LABS: OR HCG Qualitative Urine Negative (Negative)
--- NOTE | 2021-02-17 12:06 | W.PM.OPSUD ---
Surgery/Procedure H&P Update DATE OF PROCEDURE: February 17, 2021 DATE H&P PERFORMED: 02/14/21 H&P UPDATE INFORMATION: I have reviewed H&P completed within last 30 days, I have examined patient prior to procedure and No changes to prior documentation PREOP DIAGNOSIS: cholecystitis, epigastric pain PLANNED PROCEDURE: Operation Date: 02/17/21 13:00 Proposed Procedures p Laparoscopic Cholecystectomy [id number](Not Applicable) - Christopher Gimenez MD s EGD(Not Applicable) - Christopher Gimenez MD
--- NOTE | 2021-02-17 12:29 | ANES.PREANE2 ---
Pre-Anesthetic Assessment Pre-Anesthetic Assessment: Height/Weight: Height 1.6 m Weight 63.503 kg Temp Pulse Resp BP Pulse Ox 98.4 F 72 18 111/78 97 02/17/21 11:38 02/17/21 11:38 02/17/21 11:38 02/17/21 11:38 02/17/21 11:38 Preop Diagnosis: cholecystitis, epigastric pain Proposed Procedure: Operation Date: 02/17/21 13:00 Proposed Procedures p Laparoscopic Cholecystectomy [id number](Not Applicable) - Christopher Gimenez MD s EGD(Not Applicable) - Christopher Gimenez MD Was Beta Ashlyn taken within 24 hours: N/A Was Clonidine taken within 24 hours: N/A Last intake: Intake Last Liquid Date 02/16/21 Last Liquid Time 22:00 Last Solid Date 02/16/21 Last Solid Time 22:00 Social: Social History: No alcohol and No tobacco Exam: Pre-Anes Outpt Exam: alert, oriented x 3, clear to auscultation bilaterally and regular rate & rhythm Airway: Submandibular: WNL Cervical ROM: WNL MP: 2 Dentition: Full Neuropsych: Neuropsych: TINOCO Anesthetic Plan: ASA status: 1 Anesthesia: General Risk of > 500 ml blood loss (7ml/kg in children): No Meds/Allergies Current Medications: Current Medications Generic Name Dose Route Start Last Admin Trade Name Freq PRN Reason Stop Dose Admin Sodium Chloride 1,000 mls @ 30 ml s/hr 02/17/21 11:45 02/17/21 11:52 Sodium Chloride 0.9% IV 02/18/21 11:44 30 mls/hr .Q24H LOUISA Administration PFSH Anesthesia PFSH: Surgical History History of delivery Social History Smoking and tobacco status: never smoked Female Reproductive History: Date of last menstrual period: 01/31/21 Data Anesthesia Other Labs: Laboratory Results - last 48 hr 02/17/21 12:03 Urine HCG, Qual Negative Cardiac Studies: No Data to Display
[2021-02-17] MEDS: fentaNYL 50 mcg/mL INJ 2mL IVP ×2 (12:43→15:30)
--- NOTE | 2021-02-17 14:35 | PM.OP ---
Operative Report Date of procedure: February 18, 2021 Pre-op Diagnosis: cholecystitis, epigastric pain Post-op Diagnosis: 1. Chronic cholecystitis 2. Normal EGD Procedure Done: Esophagogastroduodenoscopy without biopsy Laparoscopic cholecystectomy Specimens removed/disposition: Gallbladder Surgeon: Christopher Gimenez Anesthesia: General Condition: stable Disposition: PACU Procedure: The patient was taken to the operating room and intubated under general anesthesia. A gastroscope was introduced and advanced up to second portion of the duodenum and slowly withdrawn. Duodenum second portion: Normal Duodenal bulb: Normal Stomach Fundus: Normal body: Normal Antrum: Normal Pylorus: Normal Esophagus GE junction: Normal at 40 cm Rest of esophagus: Normal After the antibiotic had been administered, the abdomen was prepped and draped in a sterile manner. Using a #15 blade, a 1 centimeter infraumbilical curvilinear incision was made and using an open Vadim technique the peritoneal cavity was entered. A 10 millimeter port was placed and 15 millimeters of pneumoperitoneum was created. A 10 millimeter, 30 degrees scope was then introduced. Three 5 millimeter ports were placed in the epigastric, midclavicular and the anterior axillary line two fingerbreadths below the costal margin on the right side under the direct visualization. Ratcheted forceps were introduced into the lateral most port and was used to retract the fundus of the gallbladder cephalad and using forceps the infundibulum of the gallbladder was retracted laterally. Using L-hook cautery the peritoneum overlying the Calot's triangle was opened medially and laterally until the cystic duct and the cystic artery were skeletonized. There was bleeding from posterior branch of the cystic artery which was controlled with cautery and clips. Dissection was carried along the body of the gallbladder and after ensuring critical view of safety, 4 clips applied on the cystic duct and 3 clips applied on the cystic artery and cut leaving, 3 clips on the remaining portion of the duct and 2 clips on the remaining portion of the artery. The rest of the gallbladder was dissected off the liver using L-hook cautery. There was no bleeding or bile leaking noted from the gallbladder fossa and the clips appeared to be in place. An EndoCatch bag was introduced to remove the gallbladder. All the ports were removed under direct visualization and there was no bleeding noted from the port sites. The fascia of the umbilicus was closed using [id number] 0 Vicryl sutures and the subcutaneous tissue was approximated using 3-0 Vicryl sutures. The skin at all four ports were closed using 4-0 Monocryl and Dermabond. A total of 10 millimeters of 0.5% Marcaine was infiltrated around the port sites. The patient was stable throughout the procedure
--- NOTE | 2021-02-17 15:37 | SUR.PHASEI ---
1530 PT MORE AWAKE C/O OF ABD PAIN OF 10 PT RESTING ON RT SIDE, WARM BLANKETS TO PT AND SEE PAIN MED GIVEN , VSS MONITOR SR NO ECTOPY 1537 PT SLEEPS IF NOT DISTURBED PT AWAKES AND STATES PAIN IS BETTER, PT QUICKLY BACK TO SLEEP VSS.
--- NOTE | 2021-02-17 15:38 | ANE.PACU2 ---
Inpatient post-anesthesia follow up: Airway intact: Yes Vital signs: Temperature 97.5 F Pulse Rate 71 Respiratory Rate 19 Blood Pressure 134/78 Pulse Oximetry 100 Oxygen Delivery Me thod Room Air Oxygen Flow Rate 8 Fraction of Inspir ed Oxygen Hydration adequate: Yes Nausea and vomiting: No Pain level: 2 Mental status: Baseline
[2021-02-17] MEDS: HYDROcodone-acetaminophen 5-325 mg Tablet 1 TAB PO (16:19)
== END 2021-02-17 16:49 | disposition home or self-care (01) ==
PROVIDERS: PCP Family Medicine; Visit Provider Surgery
PROC: 0FT44ZZ Resection of Gallbladder, Percutaneous Endoscopic Approach (ICD-10-PCS; CPT 47562; principal; 2021-02-17 13:00)
PROC: 0DJ08ZZ Inspection of Upper Intestinal Tract, Via Natural or Artificial Opening Endoscopic (ICD-10-PCS; CPT 43235; 2021-02-17 13:00)
DX: K81.1 Chronic cholecystitis (principal)
CPT/HCPCS: 43235; 47562; 81025; 84703; 88304; J0690; J1100; J1200; J2405; J2704; J2710; J3010; J3490; J7030

== ENCOUNTER 2025-03-02 08:09 | Outpatient (CLI) | payer OTHER, SELFPAY ==
--- NOTE | 2025-03-02 08:35 | MM_ITS ---
WS: [id number] BILATERAL SCREENING DIGITAL TOMOSYNTHESIS MAMMOGRAM WITH CAD HISTORY: SCREENING COMPARISON: None available. Bilateral CC and MLO views with tomosynthesis and synthetic mammography submitted. Computer aided detection analyzed. Breast composition: There are scattered areas of fibroglandular density. No suspicious masses, microcalcifications or architectural distortion. MM/MM scr BI tomosynthesis [id number] IMPRESSION: BI-RADS: 1 - Negative. FOLLOW UP: 1 Year Follow-up
== END 2025-03-02 08:10 | disposition home or self-care (01) ==
PROVIDERS: PCP Family Medicine; Visit Provider Family Medicine
DX: Z12.31 Encounter for screening mammogram for malignant neoplasm of breast (principal); R92.323 Mammographic fibroglandular density, bilateral breasts
CPT/HCPCS: 77063; 77067